=== PATIENT | male | born 1975 | race Caucasian/White ===

== ENCOUNTER → 2019-02-09 10:17 | Outpatient (CLI) | payer OTHER, SELFPAY ==
[2019-02-09 11:46] LABS: Alanine Aminotransfer ALT/SGPT 35 U/L (16-61); Cholesterol 216 mg/dL (200); Creatinine, Serum 1.28 mg/dL (0.70-1.30); EST Glomerular Filtration Rate 65 mL/min (>60); Est Glom Filt Rate - Afr Amer 78 mL/min (>60); Glucose 92 mg/dL (74-106); High Density Lipoprotein 49 mg/dL; Triglycerides 152 mg/dL; Very Low Density Lipoprotein 30 mg/dL (5-40)
[2019-02-09 18:27] LABS: Xtra Tube EP Lab EXTRA TUBE
== END ==
PROVIDERS: Family Provider Family Medicine; PCP Family Medicine; Referring Provider Family Medicine; Visit Provider Family Medicine
DX: Z13.220 Encounter for screening for lipoid disorders (principal); F41.1 Generalized anxiety disorder
CPT/HCPCS: 36415; 80061; 82565; 82947; 84460

== ENCOUNTER → 2019-12-01 06:51 | Outpatient (CLI) | payer OTHER, SELFPAY ==
--- NOTE | 2019-12-01 14:08 | PFT ---
INTRODUCTION: The patient is a 44-year-old male that presents for pulmonary function studies secondary to a diagnosis of shortness of breath. Respiratory therapy reports good patient effort. Bronchodilators were used during testing. INTERPRETATION: Forced expiration spirometry demonstrates the presence of a mild large airways obstructive ventilatory defect. There was a significant response to aerosolized bronchodilators. Spirograms are of good quality and plateau gradually indicating slow emptying of the lungs. Body plethysmography was performed and reveals a decrease TLC to 6.64 L, 82% of predicted, indicative of a mild restrictive ventilatory impairment. Diffusing capacity by single breath CO is within normal limits at 88% of predicted. IMPRESSION: Partially reversible mild mixed ventilatory defect with preserved diffusing capacity.
== END ==
PROVIDERS: Family Provider Family Medicine; PCP Family Medicine; Referring Provider Nurse Practitioner Family; Visit Provider Nurse Practitioner Family
DX: R06.02 Shortness of breath (principal)
CPT/HCPCS: 94060; 94726; 94729

== ENCOUNTER → 2019-12-19 15:37 | Outpatient (CLI) | payer OTHER, SELFPAY ==
--- NOTE | 2019-12-19 15:39 | RAD_ITS ---
STUDY: X-RAY CHEST REASON FOR EXAM: Male, 44 years old. SOB X1 MONTH TECHNIQUE: PA and lateral views of the chest. COMPARISON: 02/12/2016. FINDINGS: Minimal right infrahilar atelectasis, remainder of the lungs are clear and expanded. There is no demonstrated pleural abnormality. Normal size heart. Normal mediastinum and flower. Normal visualized pulmonary arteries. Normal visualized aortic arch and descending thoracic aorta. Normal visualized thoracic spine. Normal visualized ribs, clavicles, and shoulders. There is no demonstrated abnormality of the visualized soft tissue structures of the upper abdomen. RAD/Chest PA and Lateral IMPRESSION: Minimal right infrahilar atelectasis, otherwise normal x-ray examination of the chest. Electronically Signed: Stephanie Post MD at 3:47 EST , Service support ,
== END ==
PROVIDERS: PCP Family Medicine; Referring Provider Family Medicine; Visit Provider Family Medicine
DX: R06.02 Shortness of breath (principal)
CPT/HCPCS: 71046

== ENCOUNTER 2020-11-05 10:15 | Day surgery (SDC) | payer OTHER, SELFPAY ==
[2020-10-30 10:42] VITALS: BMI 33.7
--- NOTE | 2020-11-04 12:36 | EKG12_ITS ---
Test Reason : PRE OP Blood Pressure : / mmHG Vent. Rate : 066 BPM Atrial Rate : 066 BPM P-R Int : 172 ms QRS Dur : 098 ms QT Int : 394 ms P-R-T Axes : 034 -16 026 degrees QTc Int : 413 ms Normal sinus rhythm Normal ECG Confirmed by NARCISA GARDINER, JOSH ([id number]), managing editor JOSEFINA FOSTER ([id number]) on 11/06/2020 11:01:27 AM Referred By: Lizzie Sarabia Confirmed By:JOSH BREWSTER MD
--- NOTE | 2020-11-04 15:52 | PCM.HP.BLA ---
History and Physical Date of Admission: 11/05/20 HISTORY AND PHYSICAL ? Aiden Elias 1975 ? REFERRING PHYSICIAN: Self ? CHIEF COMPLAINT: Abdominal Pain ? HPI: Aiden is a 44 year old male with a complaint of right upper quadrant pain. The patient had episodic right upper quadrant pain for going on 8 to 9 years. He had a ultrasound which was unremarkable in 2012. He had a HIDA scan which demonstrated decreased ejection fraction and did reproduce his symptoms in 2014 but he decided against surgery at that time. The symptoms have increased, over the past 1 month. The pain does radiate to the back and shoulder. Food does aggravate his symptoms. Alleviating factors include: none. ? ? ? SIGNIFICANT MEDICAL PROBLEMS: PAST MEDICAL HISTORY PAST MEDICAL HISTORY Diagnosis Date ? Allergic rhinitis, cause unspecified ? ? Allergic rhinitis ? HTN (hypertension) ? He is noted asthma and some shortness of breath. This is improved on inhalers. His pulmonary function tests were generally nearly normal. He is following up with pulmonary-Dr. Tucker tomorrow OPERATIONS: PAST SURGICAL HISTORY PAST SURGICAL HISTORY Procedure Laterality Date ? ARTHROTOMY,OPEN REPAIR MENISCUS ? ? ? Open knee reconstruction ? CLOSED RX PROX ULNA FRACTURE ? ? ? broken leg ? LAP UMBILICAL HERNIA REPAIR ? 2006 ? with mesh ? ? ? CURRENT MEDICATIONS: CURRENT MEDICATIONS Current Outpatient Medications Medication Sig Dispense Refill ? albuterol HFA (PROVENTIL HFA, VENTOLIN HFA) 90 mcg/actuation inhaler inhale 1 puff by mouth and INTO THE LUNGS every 4 hours if needed ? ? ? montelukast (SINGULAIR) 10 mg tablet Take 10 mg by mouth once daily. ? ? ? budesonide-formoterol (SYMBICORT) 160-4.5 mcg/actuation inhaler Inhale 2 Puffs as instructed twice daily. ? ? ? losartan 25 mg tablet Take 1 tablet by mouth once daily. ? 0 ? fexofenadine (JAI) 180 mg tablet Take 1 tablet by mouth once daily. ? 0 ? Yxaecvs-Fnhlqppfovgab-Tbwosdho (EXCEDRIN) 250-250-65 mg per tablet Take 1 tablet by mouth every 6 hours as needed. ? 0 ? No current facility-administered medications for this visit. ? ? ALLERGIES: Patient has no known allergies. ? PERSONAL HISTORY: SOCIAL HISTORY Social History ? Tobacco Use ? Smoking status: Former Smoker ? ? Types: Cigarettes ? ? Quit date: 11/15/2008 ? ? Years since quittin.9 Substance Use Topics ? Alcohol use: Yes ? ? Comment: socially ? Drug use: Not on file ? FAMILY HISTORY: FAMILY HISTORY FAMILY HISTORY Problem Relation Age of Onset ? Allergies Maternal Grandmother ? ? Arthritis Mother ? ? Arthritis Maternal Grandmother ? ? Cancer Paternal Grandmother ? ? Cancer Paternal Grandfather ? ? Colon Cancer Paternal Grandmother ? ? Colon Cancer Paternal Grandfather ? ? COPD Maternal Grandfather ? ? Coronary Artery Disease Maternal Grandfather ? ? GI Mother ? ? ? REVIEW OF SYMPTOMS: The review of systems data was entered by the nurse and reviewed by me ? Nursing Notes: Alessia Yip LPN 10/29/2020 2:42 PM Signed REVIEW OF SYSTEMS: General: The patient NOTES fatigue, denies weight loss, NOTES weight gain, denies feeling hot, and NOTES feelings of cold. Eyes: The patient denies glaucoma, denies eye injury/surgery, wears glasses or contacts. Ear/Nose/Throat: The patient NOTES allergies, denies hayfever, denies ear infections, and denies bloody noses. Cardiovascular: The patient denies chest pain, denies heart disease, denies high blood pressure,denies cardiac stent, denies prior heart attack, denies irregular heart beat, denies high cholesterol, denies poor circulation, denies heart failure, other cardiac issues, denies claudication, denies cold feet, denies peripheral arterial stent. Respiratory: The patient denies tuberculosis, denies pneumonia, denies frequent cough, denies pulmonary embolism, NOTES shortness of breath, and denies coughing up blood. Gastrointestinal: The patient denies difficulty swallowing, denies acid reflux, denies ulcers, denies vomiting, denies jaundice/hepatitis, denies gallbladder problems, denies black or tarry stools, denies hemorrhoids, denies bleeding from rectum, denies diverticulitis, NOTES constipation, denies diarrhea, denies loss of stool control, and denies hernias. Kidney/Bladder: The patient denies kidney stones, denies urine infections, and denies bloody urine. Skin: The patient denies a history of skin cancer, denies bleeding/changing moles, and denies a history of skin rash. Neurologic: The patient denies a history of epilepsy/convulsions, NOTES headaches, denies head/spinal injuries, and denies stroke/TIA. Psychiatric: The patient denies psychiatric medications, NOTES depression, and denies voices, denies substance abuse. Endocrine: The patient denies thyroid disorders, denies diabetes, and denies hormonal problems. Hematologic: The patient denies a history of bruising, denies bleeding, and denies anemia, denies blood clots. Infections: The patient denies a history of measles and mumps, denies rheumatic fever, and denies sexually transmitted diseases. Musculoskeletal: The patient denies back pain/injury, NOTES back problems, denies sciatica, NOTES knee/foot trouble, denies arthritis, or denies gout. ? ? When was patient's last Mammogram screening? N/A ? Last Colonoscopy: None ? Alessia Yip LPN ? PHYSICAL EXAMINATION: ? General: The patient is 44 year old male, well nourished, well hydrated in no acute distress. The patient is oriented to time, place, and person. ? VITALS: Blood pressure 140/96, pulse 74, temperature 36.4 ?C (97.5 ?F), temperature source Temporal, resp. rate 20, height 190.5 cm (6' 3), weight 120.2 kg (265 lb), SpO2 100 %. Body mass index is 33.12 kg/m?. ? HEENT: Normal cephalic, ataumatic, pupils are equally round, sclera are anicteric, mucous membranes are moist, oropharynx is clear. Neck has no masses, asymmetry or lymphadenopathy. Thyroid is unremarkable. ? Respiratory: Clear to auscultation and percussion. Normal respiratory excursion and pattern. ? Cardiac: Examination is regular rate and rhythm. ? Abdominal exam: Normoactive bowel sounds, Soft, tender in the right upper quadrant positive Reilly's sign, with no palpable masses. No hepatosplenomegaly. No palpable hernias. ? Rectal exam: exam deferred ? Extremities: no clubbing, cyanosis or edema. No adenopathy. ? Other: ? LABORATORY VALUES: As Noted ? RADIOLOGIC STUDIES: As Noted Above ? Assessment IMPRESSION: RUQ Pain ? PLAN: I plan to obtain a relatively urgent right upper quadrant ultrasound to assess for acute cholecystitis and changes. If this demonstrates findings consistent with the exam, my plan is to perform a laparoscopic cholecystectomy with intraoperative choleangiogram. The planned surgical procedure was discussed extensively with the patient. The risks, benefits, anticipated outcomes and possible complications were mentioned. My staff has also explained the procedure in understandable terms and the patient was given the option to take printed material concerning the planned procedure. The patient had the opportunity to ask questions concerning the planned procedure. The patient freely consents to the planned procedure. ? The patient was offered a surgery/procedure at a [facility]. The surgeon/proceduralist and patient have discussed in detail the risk of exposure to and/or potential harm posed by the COVID-19 virus with having a surgery/procedure at this time versus the risk of? delaying the surgery/procedure. It is not possible to know either the risk of delaying the surgery or procedure or chance of getting an infection with perfect accuracy, but a joint decision was made between the patient and the surgeon/proceduralist ?to proceed at this time with the scheduled surgery/procedure as indicated on the consent form. ? ? ? Planned Procedure: LAPAROSCOPIC CHOLECYSTECTOMY WITH INTRAOPERATIVE CHOLEANGIOGRAM - [id number] ? Planned antibiotic: Ancef 2gm IVPB occupational therapist rehab manager to OR ? SCDs needed - Yes ? Bilingual Inside Sales Representative Needed - Yes ? Diagnoses: (R10.11) Abdominal pain, right upper quadrant (primary encounter diagnosis) ? ? ? A letter was sent to Dr. Dangelo Gurrola MD indicating the above finding for this patient. ? Hernán Goodman MD
[2020-11-05] VITALS (8 sets, daily range): BP systolic 142–174; BP diastolic 91–116; PULSE 67–78; RESP 16–20; TEMP 36.3–37.1; O2SAT 93–99; BMI 33.3
[2020-11-05] MEDS: Lactated Ringers 1,000 ML 75 ML IV ×2 (11:10→13:29)
--- NOTE | 2020-11-05 11:26 | PCM.DC.GB ---
Discharge Diet: No Restrictions - drink plenty of fluids, avoid carbonated beverages as they may cause bloating and more abdominal pain after surgery Lifting Restrictions: no lifting greater than 20 pounds for two weeks Call your doctor if your incision/area has: Continuous Slow Oozing, Foul Smelling Discharge Call your doctor if you observe: Fever of 101 or Higher Additional Instructions: Recommended pain control regimen - May take 600 mg ibuprofen (Motrin) and then in 3-4 hours, may take 650 mg acetaminophen (Tylenol), then in 3-4 hours may take 600 mg ibuprofen, then in 3-4 hours may take 650 mg acetaminophen and so on for 2-3 days May take narcotic pain medication for pain that is not controlled by above and at night for comfort through the night Leave dressings in place May get dressings wet in shower - do not scrub in the area and pat dry Do not soak - no tub baths/swimming Apply ice packs to right upper quadrant of abdominal wall for comfort as tolerated Allergies/Adverse Reactions: Allergies animal dander Allergy (Unknown, Verified 11/04/20 08:38) Unknown Mold Spores Allergy (Unknown, Uncoded 11/04/20 08:38) Unknown Poison [place]/ [place]/ [place] Allergy (Unknown, Uncoded 11/04/20 08:38) Unknown Medications to take at Discharge albuterol sulfate 90 mcg/actuation aerosol inhaler 2 puff INHALATION Q4H PRN g 01/10/20 fexofenadine 180 mg tablet 180 mg PO DAILY 01/10/20 albuterol sulfate 2.5 mg INHALATION Q4H PRN #180 ml 01/23/20 budesonide-formoterol HFA 160 mcg-4.5 mcg/actuation aerosol inhaler 2 puff INHALATION BID #1 ea 10/30/20 montelukast 10 mg tablet 10 mg PO DAILY #90 tab 10/30/20 Hydrocodone Bitart/Apap 5-325 [[place] 5MG-325MG] 1 tab PO Q8H PRN PRN 5 Days #15 tab 11/05/20 The following prescriptions were given: Hydrocodone Bitart/Apap 5-325 [[place] 5MG-325MG] 1 tab PO Q8H PRN PRN 5 Days #15 tab PRN Reason: Pain Score 4-10 Transmission Status: Received by [facility] Primary Care Physician: Dangelo Gurrola MD [Primary Care Provider] - Test Results: Test results from this visit will be discussed in further detail at your follow-up appointment, if applicable. Please Follow Up With: Lizzie Sarabia MD - call When: to be seen in 1-2 weeks, please call for date and time, thank you
--- NOTE | 2020-11-05 11:50 | GALL_PTH ---
PATIENT: ANA MARIA ASIF LOC: [facility] [place] U#:[id number] AGE/SX: 45/M ROOM: RE11/05/[address]: Dr. Lizzie Sarabia MD : 1975 BED: DIS: 11/05/2020 SPEC #: [id number] RECD: 11/05/20 13:45 STATUS: RYAN RE #: [id number] LEENA: 11/05/20 11:[address]: Lizzie Sarabia DEPT: SURGICAL PATHOLOGY RECD BY: Chelly Brumfield ENTERED: 11/06/20 07:36 SP TYPE: KERRY AYALA DR: Dr. Dangelo Gurrola MD Tissues: Gallbladder, NOS Procedures: Surgery Specimen Level III HEADER OPERATION: Laparoscopic cholecystectomy with IOC PRE-OP DIAGNOSIS: Acute cholecystitis TISSUE SUBMITTED: Gallbladder MICROSCOPIC DIAGNOSIS Gallbladder, cholecystectomy: Chronic cholecystitis and a benign mucosal polyp, consistent with cholesterolosis. No stones are identified in the container or in the gallbladder. SJ:celestine 11/07/20 MICROSCOPIC DESCRIPTION Slides are reviewed. GROSS DESCRIPTION Received is one container labeled with the patient's name and designated gallbladder. The specimen consists of a gallbladder measuring 8 cm in length and up to 3 cm in diameter. The external surface is pink-tai, smooth and glistening for the most part. Focally it is granular, hemorrhagic and contains cautery artifact. The gallbladder contains green-yellow mucoid bile. No stones are identified in the container or in the gallbladder. The mucosa shows one small polypoid lesion measuring 0.1 cm in greatest dimension. The mucosa also shows several yellowish streaks consistent with cholesterolosis. The gallbladder wall measures up to 0.2 cm in thickness. Model Set Artist sections from the gallbladder and the cystic duct are submitted in one cassette. / JOHNSON:celestine 11/06/20 TC:3 [facility]: [id number]
--- NOTE | 2020-11-05 11:50 | RAD_ITS ---
STUDY: INTRAOPERATIVE GLANDULAR. REASON FOR EXAM: Male, 45 years old. Abd pain FLUOROSCOPY TIME (if supplied): ( 4.3 seconds ) minutes/seconds. One intraoperative image was obtained. TECHNIQUE: An intraoperative cholangiogram was performed by the surgeon. A single image was submitted. COMPARISON: None. FINDINGS: The visualized portion of the common bile duct is unremarkable. No intraluminal filling defect is seen. There is free flow of contrast into the duodenum. RAD/Cholangiogram/ O R,Initial IMPRESSION: No abnormality is seen on the submitted image. Electronically Signed: Fernie Gutiérrez, at 14:13 EST , Service support ,
[2020-11-05] MEDS: Cefazolin 2 GM in 0.9% Normal Saline 100 ML IV (11:53)
[2020-11-05] MEDS: Bupiv/Epi 0.25% 30 ML Vial (12:54)
--- NOTE | 2020-11-05 12:54 | OP.PCM_ITS ---
Report of Operation Date of Procedure: 11/05/20 Pre-Operative Diagnosis: RUQ abdominal pain, abnormal HIDA scan Post-Operative Diagnosis: same Surgery/Procedure Performed:: laparoscopic cholecystectomy with cholangiogram Description of Surgical Findings:: normal cholangiogram, large amount of intraabdominal adiposity mechanical applications engineer: Regina Lawrence Type of Anesthesia:: General Anesthesiologist: Grace Jovel Specimen's removed: gallbladder and contents Estimated Blood Loss (mL): < 30 ml Fluids Replaced: 1100 ml RL Description of Procedure: After informed consent was given, the patient was brought to the Operating Room. Appropriate time out protocol was followed. The patient was placed in the supine position. The patient was then placed under general endotracheal anesthesia by the anesthesia provider. The abdomen was then prepped with a sterile surgical skin preparation and sterile surgical drapes were placed. An area superior to the umbilical dimple was grasped with penetrating clamps and the skin and subcutaneous tissues were infiltrated with 0.25% marcaine with epinephrine. A skin incision was then made with a 15 blade scalpel. The anterior abdominal wall was elevated. The fascia was then incised under direct visualization and the intraabdominal cavity was entered. There was some adhesions to this area that were freed from the abdominal wall by digital sweep. A 11 mm trocar was then placed in the intraabdominal cavity. A CO2 pneumope ritoneum was then created. A 10mm laparoscope was then inserted into the trocar and careful attention was directed to the intraabdominal contents. There was no evidence of injury to any intraabdominal organs from entrance into the intraabdominal cavity or insertion of the trocar. Under direct visualization, a 5mm subxiphoid trocar and two lateral 5mm right subcostal trocars were placed. The skin and subcutaneous tissues at these sites were infiltrated with 0.25% marcaine with epinephrine prior to placement of these trocars. Attention was then directed to the right upper quadrant of the abdomen. Graspers were placed in the lateral trocars to grasp the distal aspect of the gallbladder and direct it cephalad and to grasp the gallbladder at Benavidez?s pouch and direct it laterally. Dissection then began on the proximal gallbladder continuing down to the area of the triangle of Calot to bluntly dissect out the cystic duct. The neck of the gallbladder was identified and blunt dissection continued to dissect out a segment of the cystic duct. A clip was then placed on the neck of the gallbladder. A small ductotomy was then made. A Ranfac catheter was brought in through a separate skin incision. It was noted to have bleeding from this site, probably from the hypogastric vein. A Michael needle with 0 prolene suture was then brought into the intraabdominal cavity and ligated around the vessel and this caused the bleeding to stop. The Ranfac catheter was then placed into the cystic duct. An intraoperative cholangiogram was performed under fluoroscopy. The xray revealed no lesions in the common bile duct and good flow into the duodenum. The Ranfac catheter was then removed and two clips were placed proximal to the ductotomy and the cystic duct was then transected. The cystic artery was visualized and bluntly isolated and then two clips were placed proximally and one clip distally and then it was transected between the proximal and distal clips. The gallbladder was then from the liver bed using electrocautery. Once from the liver bed, it was brought out via the umbilical port. It was then forwarded to pathology for analysis. The liver bed was carefully examined. There was no evidence of bile leakage or bleeding. The cystic duct stump and cystic artery stump had their clips intact and there was no evidence of bile leakage or bleeding. The remainder of the abdomen was grossly normal. No bleeding was noted from the hypogastric vessel. The CO2 was released and all trocars removed intact. The periumbilical fascia was approximated with a [id number] 1-0 prolene suture because of the previous mesh placement. All skin incision were closed with 4-0 monocryl in a subdermal fashion. Cavilol and Steristrips were used to reinforce the skin closure. Sterile dressings were applied to all wounds. Sponge, needle and instrument count was verified and correct at time of skin closure. The patient was extubated and brought to the Recovery Room in stable condition. - Complications none noted - Admit VTE Documentation VTE Present on Admission: Yes VTE Mechan Device Prophylaxis: SCD's
[2020-11-05] MEDS: HYDROcodone Bitartrate/Apap 5/325 Tablet PO (14:39)
[2020-11-05] MEDS: Ondansetron 4 MG/2 ML Vial IV (14:42)
== END 2020-11-05 15:43 | disposition home or self-care (01) ==
LOC: SDC 10:16 → AC 10:23
PROVIDERS: PCP Family Medicine; Referring Provider Surgery; Visit Provider Surgery
PROC: (CPT 47610; principal; 2020-11-05 11:30)
DX: R10.11 Right upper quadrant pain (principal); Z20.828 Contact with and (suspected) exposure to other viral communicable diseases; J44.9 Chronic obstructive pulmonary disease, unspecified; I10 Essential (primary) hypertension; F32.9 Major depressive disorder, single episode, unspecified; F41.9 Anxiety disorder, unspecified; Z79.82 Long term (current) use of aspirin; Z79.51 Long term (current) use of inhaled steroids; Z79.899 Other long term (current) drug therapy; Z87.891 Personal history of nicotine dependence
CPT/HCPCS: 00790; 47563; 74300; 76000; 87426; 88304; 93005; C9803; J7120; J2405

== ENCOUNTER → 2023-05-24 | Outpatient (CLI) | payer OTHER, SELFPAY ==
[2023-05-24 12:35] LABS: Absolute Lymphocyte Count 1.81 X10^3/uL (0.83-4.51); Absolute Neutrophil Count 3.2 X10^3/uL (2.0-7.7); Basophil# 0.04 X10^3/uL; Basophil% 0.7 % (0-1); Eosinophil# 0.13 X10^3/uL; Eosinophils% 2.3 % (0-5); Hematocrit 45.7 % (40-54); Hemoglobin 15.4 g/dL (13.0-16.5); Lymphocyte # 1.81 X10^3/ul (0.83-4.51); Lymphocyte % 31.6 % (19-41); Mean Corp Hgb Conc 33.7 g/dL (32-36); Mean Corpuscular Hgb 30.9 pg (27.0-32.0); Mean Corpuscular Volume 91.8 fL (80-94); Mean Platelet Vol. 9.8 fl (6.2-12.0); Monocyte# 0.59 X10^3/uL; Monocyte% 10.3 % (0-10); NRBC Flagged by Analyzer 0 % (0-5); Neutrophil # 3.15 X10^3/uL (2.7-7.7); Neutrophil % 54.9 % (47-70); Platelet Count 294 K/mm3 (150-450); RBC Distribution Width CV 13.7 % (11.6-14.6); RBC Distribution Width SD 45.9 fl (35.1-43.9); Red Blood Count 4.98 M/mm3 (4.6-6.2); White Blood Count 5.7 K/mm3 (4.4-11.0)
[2023-05-24 12:54] LABS: AST(SGOT) 19 U/L (15-37); Alanine Aminotransfer ALT/SGPT 33 U/L (16-61); Albumin, Serum 3.6 g/dL (3.2-5.0); Alkaline Phosphatase 88 U/L (45-117); Anion Gap 4 (5-15); BUN 17 mg/dL (7-18); BUN/Creat Ratio 14.8 RATIO (10-20); Calcium,Total 8.6 mg/dL (8.5-10.1); Chloride 108 mmol/L (98-107); Cholesterol 228 mg/dL (200); Creatinine, Serum 1.15 mg/dL (0.70-1.30); EST Glomerular Filtration Rate 72 mL/min (>60); Est Glom Filt Rate - Afr Amer 87 mL/min (>60); Globulin 3.5 g/dL (2.2-4.2); Glucose 104 mg/dL (74-106); High Density Lipoprotein 52 mg/dL; Potassium 4.3 mmol/L (3.5-5.1); Protein, Total 7.1 g/dL (6.4-8.2); Sodium Level 138 mmol/L (136-145); Triglycerides 159 mg/dL; Very Low Density Lipoprotein 32 mg/dL (5-40)
== END | disposition home or self-care (01) ==
LOC: BIMLAB 09:03
PROVIDERS: PCP Internal Medicine; Referring Provider Internal Medicine; Visit Provider Internal Medicine
DX: I10 Essential (primary) hypertension (principal); Z13.6 Encounter for screening for cardiovascular disorders
CPT/HCPCS: 36415; 80053; 80061; 85025

== ENCOUNTER → 2024-02-22 | Outpatient (CLI) | payer OTHER, SELFPAY ==
[2024-02-22 12:51] LABS: Absolute Lymphocyte Count 1.41 X10^3/uL (0.83-4.51); Absolute Neutrophil Count 3.4 X10^3/uL (2.0-7.7); Basophil# 0.03 X10^3/uL; Basophil% 0.5 % (0-1); Eosinophils% 1.8 % (0-5); Hematocrit 42.6 % (40-54); Hemoglobin 14.4 g/dL (13.0-16.5); Lymphocyte # 1.41 X10^3/ul (0.83-4.51); Lymphocyte % 25.3 % (19-41); Mean Corp Hgb Conc 33.8 g/dL (32-36); Mean Corpuscular Hgb 31.2 pg (27.0-32.0); Mean Corpuscular Volume 92.2 fL (80-94); Mean Platelet Vol. 9.4 fl (6.2-12.0); Monocyte# 0.58 X10^3/uL; Monocyte% 10.4 % (0-10); NRBC Flagged by Analyzer 0 % (0-5); Neutrophil # 3.44 X10^3/uL (2.7-7.7); Neutrophil % 61.8 % (47-70); Platelet Count 281 K/mm3 (150-450); RBC Distribution Width CV 13.8 % (11.6-14.6); RBC Distribution Width SD 46.6 fl (35.1-43.9); Red Blood Count 4.62 M/mm3 (4.6-6.2); White Blood Count 5.6 K/mm3 (4.4-11.0)
[2024-02-22 13:48] LABS: Vitamin D,25 Hydroxy 21.7 ng/mL
[2024-02-22 15:16] LABS: ALB/GLOB Ratio 1.1 RATIO (0.9-2.4); AST(SGOT) 20 U/L (15-37); Alanine Aminotransfer ALT/SGPT 32 U/L (16-61); Albumin, Serum 3.7 g/dL (3.2-5.0); Alkaline Phosphatase 69 U/L (45-117); Anion Gap 8 (5-15); BUN 17 mg/dL (7-18); Calcium,Total 8.7 mg/dL (8.5-10.1); Chloride 107 mmol/L (98-107); Cholesterol 212 mg/dL (200); Creatinine, Serum 1.06 mg/dL (0.70-1.30); EST Glomerular Filtration Rate 79 mL/min (>60); Est Glom Filt Rate - Afr Amer 95 mL/min (>60); Globulin 3.3 g/dL (2.2-4.2); Glucose 102 mg/dL (74-106); High Density Lipoprotein 56 mg/dL; Potassium 4.1 mmol/L (3.5-5.1); Sodium Level 138 mmol/L (136-145); Triglycerides 139 mg/dL; Very Low Density Lipoprotein 28 mg/dL (5-40)
== END | disposition home or self-care (01) ==
LOC: BIMLAB 09:35
PROVIDERS: PCP Internal Medicine; Visit Provider Internal Medicine
DX: I10 Essential (primary) hypertension (principal); E78.2 Mixed hyperlipidemia; E56.9 Vitamin deficiency, unspecified
CPT/HCPCS: 36415; 80053; 80061; 82306; 85025

== ENCOUNTER 2024-04-27 06:41 | Day surgery (SDC) | payer OTHER, SELFPAY ==
[2024-04-27] VITALS (8 sets, daily range): BP systolic 101–138; BP diastolic 78–93; PULSE 56–79; RESP 16–18; TEMP 36.1–36.4; O2SAT 95–98; BMI 31.9
[2024-04-27] MEDS: Lactated Ringers 1,000 ML 15 ML IV (06:59)
--- NOTE | 2024-04-27 07:18 | H&P.OPEN ---
[facility] - General General Date of Service: 04/27/24 Chief Complaint: Screening colonoscopy [facility] Narrative ANA MARIA ASIF, is a 48 M who presents for screening colonoscopy. He confirms his preappointment questionnaire that she has not experienced any change in her bowel habits-and particularly denies any notice of blood. He does share a family history of colon cancer that is identified in both his grandmothers (diagnosed in his seventh decade of life) and his mother as well. He shares that the latter succumbed to this diagnosis at the age of 59. Lastly he confirms that his prep was completed successfully and that his output is now clear. [facility] Medical History Wears glasses Alcohol use Gout Dietary restriction Former smoker COPD (chronic obstructive pulmonary disease) Shortness of breath on exertion History of stress test Hypertension Family history of colon cancer in mother Nicotine dependence, cigarettes, in remission Hx of fracture of wrist Hx of fracture of leg Allergic rhinitis SOB (shortness of breath) Home Medications ?Medication ?Instructions ?Recorded ?Last Taken ?Type fexofenadine 180 mg tablet 180 mg PO DAILY 01/10/20 11/05/20 08:30 History (Mari Allergy) albuterol sulfate 2.5 mg/3 mL 2.5 mg (3 mL) inhalation Q4H PRN 04/21/22 Unknown Rx (0.083 %) solution for nebulization shortness of breath or wheezing #180 mL blood pressure monitor (Blood #1 ea 05/24/23 Unknown Rx Pressure Kit) lisinopril 20 1 tab PO DAILY #30 tabs 02/22/24 Unknown Rx mg-hydrochlorothiazide 25 mg tablet famotidine 10 mg tablet 10 mg PO DAILY 04/21/24 Unknown History albuterol sulfate 90 mcg/actuation 2 puff inhalation Q4H PRN Sob &/Or 04/24/24 Unknown Rx aerosol inhaler Wheezing #3 device montelukast 10 mg tablet 10 mg PO DAILY #90 tabs 04/24/24 Unknown Rx Allergy/AdvReac Type Severity Reaction Status Date / Time Seasonal Allergies: Uncoded Allergy Mild Other Verified 04/27/24 06:56 animal dander Allergy Unknown Unknown Verified 04/27/24 06:56 mold (mold spores) Allergy Unknown NEEDS Verified 04/27/24 06:56 FOLLOW-UP poison sabrina extract Allergy Unknown NEEDS Verified 04/27/24 06:56 FOLLOW-UP poison oak extract Allergy Unknown NEEDS Verified 04/27/24 06:56 FOLLOW-UP poison sumac extract Allergy Unknown NEEDS Verified 04/27/24 06:56 FOLLOW-UP Family History Mother Colon cancer Grandmother CVA (cerebral vascular accident) Grandfather Myocardial infarction Father Hypertension Grandmother Colon cancer Grandfather Colon cancer Surgical History History of surgery on arm History of surgery on lower extremity History of cholecystectomy History of back surgery Hx of knee surgery Hx of umbilical hernia repair Social History household members: spouse and children current occupational status: employed current occupation: real estate appraisor Smoking Status: Former smoker quit date: 11/15/07 pack-years: 5 Electronic Cigarette Use: not used how long ago did patient quit smokin alcohol intake: current alcohol intake frequency: a few times a week substance use type: does not use what type of physical activity do you participate in: none do you feel safe at home: Yes Past Medical/Surgical History Planned Operation Planned Operative Procedure(s): COLONSCOPY S.O.S: No Previous Hospitalizations/Surgeries HX Hospitalizations: No HX of Surgeries: umbilical hernia repair right knee surgery x2 fx leg as child Any Problems With Anesthesia: No You/Your Family Experience Fever (Hyperthermia) With Anes: No Cholinesterase deficiency: No Cardiovascular Hx Chest Pain within Last 2 months: No Hx of Irregular Heartbeat and/or Afib: No Hx Heart Attack: No Hx Congestive Heart Failure: No Hx Rheumatic Fever: No Hx Hypertension: Yes (PER PT, CONTROLLED ON MEDS) Hx Internal Defibrillator: No Hx Pacemaker: No Hx Cardiac Catheterization: No Hx Cardiac Surgery/Stents/Etc.: No Hx Stress Test: Yes (over 5 yrs ago) Hx Pain in Legs when Walking/Leg Cramps: No Respiratory Chronic Cough: No HX of Shortness of Breath: No Hoarseness: No Hx Chronic Obstructive Pulmonary Disease (COPD): No Hx Asthma: Yes (inhaler) Hx Emphysema: No Hx Sleep Apnea: No Hx Respiratory Tract Infection/Cold (presently): No Do You Snore Loudly (louder than talking or can be heard): No Do You Often Feel Tired/ Fatigued/ Sleepy Dring Daytime?: No Has Anyone Observed You Stop Breathing During Sleep?: No Result (for STOP score): Negative Hx Smoking: Yes (quit 15 yrs ago) Smoking Status: Former smoker Gastrointestinal Hx Gastrointestinal Disorders: No Hx Gastrointestinal Bleed: No Hx Ulcer: No Hx Hiatal Hernia: No Difficulty Chewing/Swallowing: No Special diet followed at home: No Hx Unplanned Weight Loss of 20#: No HX Unplanned Weight Gain of 20#: No Neurological Hx Seizures: No HX Syncope/Blackout Spells/Unconsciousness: No Hx Transient Ischemic Attacks (TIA): No Hx Multiple Sclerosis: No Hx Parkinson's Disease: No Hx Head/Neck Injury: No Hx Headaches: Yes (occ) Hx Back Injury/Pain: Yes (occ lower back pain) Recent Onset of Speech Difficulty: No Restless Legs: No Does patient have nerve stimulator: No Blood Disorder Hx Leukemia: No Bleeding Tendencies: No Hx Deep Vein Thrombosis: No Hx High Cholesterol: No Blood Transmitted Disease: No Hx Hepatitis: No Hx Cirrhosis: No Hx Anemia: No Hx Blood Disorders: No Genitourinary Hx Renal Disease: No Hx Dialysis: No Musculoskeletal Hx Arthritis: No Hx Rheumatoid Arthritis: No Hx Gout: No Recent Onset of an Orthopedic Problem: No Endocrine Hx Diabetes: No Thyroid Disease: No Hx Steroid Therapy: No Psycho/Social Hx Substance Use: No Hx Alcohol Use: Yes (occ) Hx Anxiety: No Hx Depression: No Mental Illness: No Hx Dementia: No Miscellaneous Hx Cancer: No Recent Exposure to Contagious Disease: No Hx of C-Diff: No Any Loose Teeth: No Allergies Seasonal Allergies: Uncoded Allergy (Mild, Verified 04/27/24 06:56) Other animal dander Allergy (Unknown, Verified 04/27/24 06:56) Unknown mold (mold spores) Allergy (Unknown, Verified 04/27/24 06:56) NEEDS FOLLOW-UP poison sabrina extract Allergy (Unknown, Verified 04/27/24 06:56) NEEDS FOLLOW-UP poison oak extract Allergy (Unknown, Verified 04/27/24 06:56) NEEDS FOLLOW-UP poison sumac extract Allergy (Unknown, Verified 04/27/24 06:56) NEEDS FOLLOW-UP Discharge Is Pt Admitted From a Longterm, or a Assisted: No Who Could Help: After D/C, Where Do you Plan to Go: Return Home Vital Signs Vital Signs Vital Signs: 04/27/24 06:57 04/27/24 06:57 Temperature 97 F L Temperature Source Temporal Pulse Rate 79 Respiratory Rate 16 Respiratory Pattern Normal Blood Pressure 138/93 H Blood Pressure Mean 108 Blood Pressure Source Monitor Blood Pressure Position Semi-Fowlers Blood Pressure Location Right Arm Pulse Ox 98 Oxygen Delivery Method Room Air Weight Weight: 262 lb 5.601 oz Body Mass Index (BMI) 31.9 Physical Exam Const alert, oriented x3 and no apparent distress General Appearance: cooperative and comfortable Resp normal respiratory effort GI GI Narrative: Soft, nondistended, nontender to palpation x 4 quadrants Assessment & Plan Assessment/Plan (1) Encounter for screening for malignant neoplasm of colon: PLAN: Patient is a 48-year-old male who presents for screening colonoscopy after what he reports is a number of years of trying to get approval for screening colonoscopy. He denies any present issues, personally, but does confirm a history of colon cancer familialy?speaking. Importantly, he also confirms successful bowel prep. Expectations for today's procedure as well as the reporting of those findings were reviewed. Neither patient nor spouse offer any further questions. Will now proceed to the endoscopy suite for planned screening colonoscopy. Surgery Risks - Colonoscopy Risks Include but are not Limited To: Risks include but are not limited to: Bleeding, perforation requiring further surgery, inability to complete colonoscopy requiring barium enema.
--- NOTE | 2024-04-27 07:40 | PRE.ANES_ITS ---
ASA Classification* ASA Classification ASA Classification: 2 Assessment & Plan Anesthesia* Anesthesia Assessment Anesthesia Assessment: Discussed sedation and/or anesthesia options, risks, benefits, and alternatives with patient/parents/legal guardian/POA. Questions invited. The patient/parents/legal guardian/POA seems to understand and agrees to proceed with anesthesia plan. Reviewed the physical assessment, medical history, allergy history and patient home medications list prior to surgery/procedure/anesthetic and documented any changes. Performed airway and anesthesia risk assessments. Anesthesia Type Anesthesia Type: MAC Pre-Assessment Diagnosis/Proposed Procedure Planned Operative Procedure(s): COLONSCOPY Anesthesia History Anesthesia History - keno writer / runner: Anesthesia History - keno writer / runner Hx Hospitalization No 04/27/24 07:21 Any Problems With Anesthesia No 04/27/24 07:21 Cholinesterase deficiency No 04/27/24 07:21 You/Your Family Experience No 04/27/24 07:21 fever (hyperthermia) with Relationship Recent Exposure to Contagious No 04/27/24 07:21 Disease Does patient have nerve No 04/27/24 07:21 stimulator Patient instructed to have device shut off --Does patient have Pacemaker No 04/27/24 06:57 or ICD? When Was Last Pacemaker Check QUESTION #4 FULL TEXT: You/Your Family Experience fever (hyperthermia) with Anesthesia Last Oral Intake Last Oral intake: Last Oral Intake NPO since Meds taken in AM with sips of water? Meds patient instructed to take am of surgery PONV PONV - keno writer / runner: PONV - keno writer / runner Female No 04/21/24 14:50 HX of Motion Sickness No 04/21/24 14:50 HX of N/V After Surgery No 04/21/24 14:50 Non-Smoker Yes 04/21/24 14:50 Duration of Surgery greater No 04/21/24 14:50 than 60 minutes Number of Risk Factors 1 04/21/24 14:50 PONV Score Low Risk 04/21/24 14:50 Height & Weight Height & Weight: Anesthesia: Height & Weight Height 6 ft 4 in 04/27/24 06:57 Weight: 119 kg 04/27/24 06:57 Body Mass Index (BMI) 31.9 04/27/24 06:57 Respiratory Assessment Respiratory Assessment - keno writer / runner: Respiratory Tract Infection Hx - keno writer / runner Hx Respiratory Tract Infection No 04/27/24 07:21 STOP Sleep Apnea STOP Sleep Apnea - keno writer / runner: STOP Sleep Apnea - keno writer / runner Hx Hypertension Yes: PER PT, CONTROLLED ON 04/27/24 07:21 MEDS Hx Sleep Apnea No 04/27/24 07:21 CPAP BIPAP Do you snore loudly (louder No 04/27/24 07:21 than talking or can be heard Do you often feel tired/ No 04/27/24 07:21 fatigued/ sleepy during daytime? Has anyone observed you stop No 04/27/24 07:21 breathing during sleep? STOP Results Negative 04/27/24 07:21 QUESTION #5 FULL TEXT : Do you snore loudly (louder than talking or can be heard through closed doors)? Tobacco Use History Tobacco Use History - keno writer / runner: Tobacco Use History - keno writer / runner Tobacco Use Smoking Status Former smoker 04/27/24 07:21 Hx Tobacco Use No 04/21/24 14:50 Years Smoking Packs Smoked per Day Smoking Cessation Date was No - quit smoking greater 04/21/24 14:50 within the last 15 years than 15 years ago Hx Smoking Cessation Date Hx Smoking Cessation Counseling Hematologic Medial History Hematologic Hx - keno writer / runner: Hematologic Medical Hx - extracorporeal technician Hx of Blood Transfusion No 04/21/24 14:50 Hx of Transfusion in last 3 No 04/21/24 14:50 Months Date of Last Transfusion (if within last 3 months) Ever experience any problems No 04/21/24 14:50 with transfusion(s)? Specify any problems Hx of Preganancy in last 3 N/A 04/21/24 14:50 Months Nurse Filling Out Transfusion MGRISUZAN 04/21/24 14:50 & Questions: Date: 04/21/24 04/21/24 14:50 Time: 14:52 04/21/24 14:50 Patient unable to answer at this time (ie. confused, unrespo /Reproduction History /Reproductive History - keno writer / runner: /Reproductive Hx- keno writer / runner Hx Now Gestational Age (in weeks): EDC: Hx Hx Para Hx Section SAB Active Medications Active Medications: Current Medications Generic Name Dose Route Start Last Admin Trade Name Freq PRN Reason Stop Dose Admin Lactated Ringer's 1,000 mls @ 15 mls/hr 04/27/24 07:00 04/27/24 06:59 IV 15 mls/hr .Q48H ROM Administration Anesthesia Focused Assessment* Temperature: 97 F Pulse Rate: 79 Blood Pressure: 138/93 Respiratory Rate: 16 Pulse Ox: 98 Airway Assessment Mouth opens (cm): 3 Mallampati Score: II Focused Labs Anesthesia Preop lab: CBC WBC 5.6 K/mm3 (4.4-11.0) 02/22/24 09:36 RBC 4.62 M/mm3 (4.6-6.2) 02/22/24 09:36 Hgb 14.4 g/dL (13.0-16.5) 02/22/24 09:36 Hct 42.6 % (40-54) 02/22/24 09:36 Plt Count 281 K/mm3 (150-450) 02/22/24 09:36 CHEMISTRY Potassium 4.1 mmol/L (3.5-5.1) 02/22/24 09:36 Sodium 138 mmol/L (136-145) 02/22/24 09:36 BUN 17 mg/dL (7-18) 02/22/24 09:36 Creatinine 1.06 mg/dL (0.70-1.30) 02/22/24 09:36 Glucose 102 mg/dL (74-106) 02/22/24 09:36 COAG Review of Systems (Anesthesia) ROS Narrative System reviewed and no additional complaints, except as documented. [facility] Medical History Wears glasses Alcohol use Gout Dietary restriction Former smoker COPD (chronic obstructive pulmonary disease) Shortness of breath on exertion History of stress test Hypertension Family history of colon cancer in mother Nicotine dependence, cigarettes, in remission Hx of fracture of wrist Hx of fracture of leg Allergic rhinitis SOB (shortness of breath) Home Medications ?Medication ?Instructions ?Recorded ?Last Taken ?Type fexofenadine 180 mg tablet 180 mg PO DAILY 01/10/20 11/05/20 08:30 History (Mari Allergy) albuterol sulfate 2.5 mg/3 mL 2.5 mg (3 mL) inhalation Q4H PRN 04/21/22 Unknown Rx (0.083 %) solution for nebulization shortness of breath or wheezing #180 mL blood pressure monitor (Blood #1 ea 07/10/23 Unknown Rx Pressure Kit) lisinopril 20 1 tab PO DAILY #30 tabs 02/22/24 Unknown Rx mg-hydrochlorothiazide 25 mg tablet famotidine 10 mg tablet 10 mg PO DAILY 04/21/24 Unknown History albuterol sulfate 90 mcg/actuation 2 puff inhalation Q4H PRN Sob &/Or 04/24/24 Unknown Rx aerosol inhaler Wheezing #3 device montelukast 10 mg tablet 10 mg PO DAILY #90 tabs 04/24/24 Unknown Rx Allergy/AdvReac Type Severity Reaction Status Date / Time Seasonal Allergies: Uncoded Allergy Mild Other Verified 04/27/24 06:56 animal dander Allergy Unknown Unknown Verified 04/27/24 06:56 mold (mold spores) Allergy Unknown NEEDS Verified 04/27/24 06:56 FOLLOW-UP poison sabrina extract Allergy Unknown NEEDS Verified 04/27/24 06:56 FOLLOW-UP poison oak extract Allergy Unknown NEEDS Verified 04/27/24 06:56 FOLLOW-UP poison sumac extract Allergy Unknown NEEDS Verified 04/27/24 06:56 FOLLOW-UP Family History Mother Colon cancer Grandmother CVA (cerebral vascular accident) Grandfather Myocardial infarction Father Hypertension Grandmother Colon cancer Grandfather Colon cancer Surgical History History of surgery on arm History of surgery on lower extremity History of cholecystectomy History of back surgery Hx of knee surgery Hx of umbilical hernia repair Social History household members: spouse and children current occupational status: employed current occupation: real estate appraisor Smoking Status: Former smoker quit date: 11/15/07 pack-years: 5 Electronic Cigarette Use: not used how long ago did patient quit smokin alcohol intake: current alcohol intake frequency: a few times a week substance use type: does not use what type of physical activity do you participate in: none do you feel safe at home: Yes
--- NOTE | 2024-04-27 07:45 | COLBX_PTH ---
PATIENT: ANA MARIA ASIF LOC: EN U#:[id number] AGE/SX: 48/M ROOM: RE04/27/[address]: Dr. Keshav Pan MD : 1975 BED: DIS: 04/27/2024 SPEC #: [id number] RECD: 04/27/24 09:59 STATUS: RYAN ANGELITA #: [id number] LEENA: 04/27/24 07:[address]: Keshav Pan DEPT: SURGICAL PATHOLOGY RECD BY: Chelly Brumfield ENTERED: 04/27/24 10:46 SP TYPE: COLON BX OTHR DR: Dr. Estelita Arce MD Tissues: Sigmoid colon biopsy Procedures: Surgery Specimen Level IV HEADER OPERATION: Colonoscopy with polyp biopsy PRE-OP DIAGNOSIS: Screening TISSUE SUBMITTED: Sigmoid polyp biopsy MICROSCOPIC DIAGNOSIS Sigmoid polyp, biopsy: A fragment of colonic mucosa, no pathologic diagnosis. JOHNSON/ 04/28/2024 MICROSCOPIC DESCRIPTION Slides are reviewed. GROSS DESCRIPTION Received in fixative is one container labeled with the patient's name and designated Sigmoid polyp biopsy. The specimen consists of one irregular fragment of light tai soft tissue that measures 0.4 x 0.2 x 0.1 cm. The specimen is totally submitted in one cassette. JOHNSON/ 04/27/2024 TC:4 CPT:08350
--- NOTE | 2024-04-27 08:23 | PCM.POST.ANE ---
Anesthesia: Postop Eval I Current Vital Signs Temperature: 97.5 F Pulse Rate: 61 Blood Pressure: 101/78 Respiratory Rate: 16 Pulse Ox: 96 Oxygen Delivery Method: Room Air Assessment Airway patent: Yes Spontaneous unlabored respirations: Yes Mental status: Asleep nausea: No Vomiting: No Anesthesia Complication: No Fluid Hydration Crystalloid volume administer (ml): 600 Total IV fluid infused: 600 Progress Note Anesthesia document: Postop Eval 1 completed: Yes
--- NOTE | 2024-04-27 08:26 | OP.CCLET_ITS ---
04/27/2024 Estelita Arce Md Re : Colonoscopy procedure for Aiden Elias Dear Yazmin This procedure was performed on April. My impressions and recommendations are as follows: Impressions : - Likely benign polypoid lesion in the proximal sigmoid colon. Biopsied. - Non-bleeding internal hemorrhoids. No specimens collected. - The examination was otherwise normal. Recommendations : - Discharge patient to home (via wheelchair). - Resume previous diet today. - Continue present medications. - Await pathology results. - Repeat colonoscopy date to be determined after pending pathology results are reviewed for surveillance based on pathology results. - Telephone my office for pathology results in 1 week. My findings are described in the full procedure note, which is enclosed. If I can be of further assistance, please feel free to contact me at Doctor phone number(s): , Work: . Sincerely, Keshav Pan MD 04/27/2024 8:25:35 AM This report has been signed electronically.
--- NOTE | 2024-04-27 08:26 | OP.COLON_ITS ---
Patient Name: Aiden Elias Procedure Date: 04/27/2024 7:41 AM Date of : 1975 Age: 48 Procedure: Colonoscopy Indications: Screening for colon cancer: Family history of colorectal cancer in multiple 2nd degree relatives, Screening in patient at increased risk: Colorectal cancer in mother before age 60 Providers: Keshav Pan MD Referring MD: Estelita Arce Md Medicines: See the Anesthesia note for documentation of the administered medications Patient Profile: Last Colonoscopy: none. The patient's first colonoscopy is today. Complications: No immediate complications. Estimated blood loss: Minimal. Procedure: Pre-Anesthesia Assessment: - The heart rate, respiratory rate, oxygen saturations, blood pressure, adequacy of pulmonary ventilation, and response to care were monitored throughout the procedure. After I obtained informed consent, the scope was passed under direct vision. Throughout the procedure, the patient's blood pressure, pulse, and oxygen saturations were monitored continuously. The colonoscope was introduced through the anus and advanced to the cecum, identified by appendiceal orifice and ileocecal valve. The colonoscopy was performed without difficulty. The patient tolerated the procedure well. The quality of the bowel preparation was adequate to identify polyps. Scope In: 7:55:06 AM Scope Withdrawal Time 0 hours 15 minutes 59 seconds Scope Out: 8:18:22 AM Total Procedure Duration Time 0 hours 23 minutes 16 seconds Findings: The perianal and digital rectal examinations were normal. Pertinent negatives include normal sphincter tone. A 3 mm polypoid lesion was found in the proximal sigmoid colon. The lesion was sessile. No bleeding was present. Biopsies were taken with a cold forceps for histology. Estimated blood loss was minimal. Non-bleeding internal hemorrhoids were found during retroflexion. The hemorrhoids were Grade I (internal hemorrhoids that do not prolapse). No biopsies or other specimens were collected for this exam. The exam was otherwise without abnormality. Impression: - Likely benign polypoid lesion in the proximal sigmoid colon. Biopsied. - Non-bleeding internal hemorrhoids. No specimens collected. - The examination was otherwise normal. Recommendation: - Discharge patient to home (via wheelchair). - Resume previous diet today. - Continue present medications. - Await pathology results. - Repeat colonoscopy date to be determined after pending pathology results are reviewed for surveillance based on pathology results. - Telephone my office for pathology results in 1 week. Procedure Code(s): --- Professional --- 68257, Colonoscopy, flexible; with biopsy, single or multiple Diagnosis Code(s): --- Professional --- D49.0, Neoplasm of unspecified behavior of digestive system K64.0, First degree hemorrhoids Z80.0, Family history of malignant neoplasm of digestive organs CPT copyright 2021 [employer]. All rights reserved. The codes documented in this report are preliminary and upon disciplinary hearing officer review may be revised to meet current compliance requirements. Keshav Pan MD 04/27/2024 8:25:35 AM This report has been signed electronically. Number of Addenda: 0 Note Initiated On: 04/27/2024 7:41 AM
--- NOTE | 2024-04-27 09:32 | PCM.POSTANE2 ---
Anesthesia Postop Eval I Sum Postop Eval Completion status Anesthesia document: Postop Eval 1 completed: Yes Anesthesia Postop Eval I Summary Anesthesia Postop Eval I Summary: Anesthesia Postop Eval I: Assessment Summary Airway patent Yes 04/27/24 08:27 [email or web address] Spontaneous unlabored Yes 04/27/24 08:27 [email or web address] respirations Mental status Asleep 04/27/24 08:27 [email or web address] nausea No 04/27/24 08:27 [email or web address] Vomiting No 04/27/24 08:27 [email or web address] Anesthesia Postop Eval I: Fluid Summary Crystalloid volume administer 600 04/27/24 08:27 [email or web address] (ml) Colloids volume administered ( ml) Blood Product volume administered (ml) Total IV fluid infused 600 04/27/24 08:27 [email or web address] Anesthesia Postop Eval I: Summary Notes Anesthesia Complication No 04/27/24 08:27 [email or web address] Anesthesia Complication Comment: Post-operative progress note Anesthesia: Postop Eval II Evaluation Mental status: Awake Pain Level: 0 nausea: No Vomiting: No Complications Anesthesia Complication: No
== END 2024-04-27 09:09 | disposition home or self-care (01) ==
LOC: EN 06:42 → AC 06:43
PROVIDERS: PCP Internal Medicine; Referring Provider Internal Medicine; Visit Provider Surgery
PROC: 0DJD8ZZ Inspection of Lower Intestinal Tract, Via Natural or Artificial Opening Endoscopic (ICD-10-PCS; CPT 45378; principal; 2024-04-27 07:40)
DX: Z12.11 Encounter for screening for malignant neoplasm of colon (principal); J44.9 Chronic obstructive pulmonary disease, unspecified; K63.5 Polyp of colon; K64.0 First degree hemorrhoids; I10 Essential (primary) hypertension; Z87.891 Personal history of nicotine dependence; Z80.0 Family history of malignant neoplasm of digestive organs; Z79.51 Long term (current) use of inhaled steroids; Z79.899 Other long term (current) drug therapy
CPT/HCPCS: 45380; 88305; J7120; J2405

== ENCOUNTER → 2025-05-23 | Outpatient (CLI) | payer OTHER, SELFPAY ==
[2025-05-23 12:46] LABS: Hematocrit 41.0 % (40-54); Hemoglobin 14.0 g/dL (13.0-16.5); Immature Granulocytes Count 0.030 X10^3/uL (0.0-0.0); Mean Corp Hgb Conc 34.1 g/dL (32-36); Mean Corpuscular Volume 91.7 fL (80-94); Mean Platelet Vol. 9.6 fl (6.2-12.0); NRBC Flagged by Analyzer 0 % (0-5); Platelet Count 323 K/mm3 (150-450); RBC Distribution Width CV 14.1 % (11.6-14.6); RBC Distribution Width SD 47.3 fl (35.1-43.9); Red Blood Count 4.47 M/mm3 (4.6-6.2); White Blood Count 5.1 K/mm3 (4.4-11.0)
[2025-05-23 13:56] LABS: AST(SGOT) 23 U/L (<=37); Alanine Aminotransfer ALT/SGPT 30 U/L (<=46); Albumin, Serum 4.2 g/dL (3.5-5.0); Alkaline Phosphatase 88 U/L (40-129); Anion Gap 14 (5-15); BUN 14 mg/dL (4-19); BUN/Creat Ratio 12.8 RATIO (10-20); Calcium,Total 8.7 mg/dL (7.6-11.0); Carbon Dioxide 22.5 mmol/L (21.0-32.0); Chloride 99 mmol/L (98-108); Cholesterol 214 mg/dL (<=200); Globulin 2.8 g/dL (2.2-4.2); Glucose 98 mg/dL (70-99); Low Density Lipoprotein Calc. 111 mg/dL; Potassium 3.8 mmol/L (3.3-5.1); Triglycerides 292 mg/dL; Very Low Density Lipoprotein 58 mg/dL (5-40); Vitamin D,25 Hydroxy 18.9 ng/mL (30-100); cholesterol:hdl ratio screen 4.78
== END | disposition home or self-care (01) ==
LOC: BIMLAB 10:38
PROVIDERS: PCP Internal Medicine; Referring Provider Internal Medicine; Visit Provider Internal Medicine
DX: I10 Essential (primary) hypertension (principal); E55.9 Vitamin D deficiency, unspecified; E78.2 Mixed hyperlipidemia
CPT/HCPCS: 36415; 80053; 80061; 82306; 85025